=== PATIENT | male | born 1965 | race Caucasian/White ===

== ENCOUNTER 2017-09-20 05:39 | Outpatient (CLI) | payer OTHER ==
[~2017-09-20] VITALS: Ht 175.3 cm; Wt 120.2 kg
[2017-09-20] MEDS ORDERED: ATOR10TA66 PO (14:10)
[2017-09-20] MEDS ORDERED: LISI10TA2 PO (14:18)
== END 2017-09-20 14:18 | disposition home or self-care (01) ==
LOC: PREOP 05:39
PROVIDERS: ATTEND Surgery
DX: Z01.818 Encounter for other preprocedural examination (principal)

== ENCOUNTER → 2021-02-11 | Outpatient (CLI) | payer OTHER ==
[~2021-02-11] MED LIST: ATOR10TA66 PO; LISI10TA25 PO
--- NOTE | 2021-02-11 15:53 | Diagnostic Imaging Report ---
INDICATION: Knee pain. COMPARISON: None. FINDINGS: Multiple radiographic views of the right knee joint demonstrate no acute fracture or dislocation. No focal osseous lesions are seen. There may be a calcified intra-articular loose body. No significant joint effusion is seen. The surrounding soft tissue structures are unremarkable. There are no radiopaque foreign bodies. IMPRESSION: Possible calcified intra-articular loose body of the right knee but no evidence of acute fracture or dislocation. Dictated by: Dictated on workstation # [id number]
== END ==
LOC: ORTHO 13:45
PROVIDERS: ATTEND Orthopaedic Surgery
DX: M25.561 Pain in right knee (principal)
CPT/HCPCS: 20610; 73564; G0463

== ENCOUNTER → 2021-04-14 | Outpatient (CLI) | payer OTHER | LOC: ORTHO 08:38 | PROVIDERS: ATTEND Orthopaedic Surgery | DX: M17.11 Unilateral primary osteoarthritis, right knee (principal); I10 Essential (primary) hypertension; E66.9 Obesity, unspecified | CPT/HCPCS: 20610; 99212 ==